=== PATIENT | male | born 1970 | race Caucasian/White ===

== ENCOUNTER 2016-12-01 08:17 | Day surgery (SDC) | payer OTHER ==
[2016-11-27 09:49] LABS: HEMATOCRIT 45.3 % (40.0-51.0); HEMOGLOBIN 15.4 g/dL (13.6-17.8)
[2016-11-27 11:06] LABS: ASCORBIC ACID (UR NOT ORDER) NEG (NEG); BILIRUBIN, URINE NEGATIVE (NEG); KETONE, URINE NEGATIVE (NEG); LEUKOCYTE ESTERASE(NOT OR NEG (NEG); WBC (NOT ORDERED) (RFLEX) 5 (0-5)
--- NOTE | ~2016-12-01 | OP ---
[facility] [address] [place]. [address] NAME: CLEMENTE NEVES : 70 STATUS : [facility]#: [id number] AGE: 45 ADM/REG DATE : 12/01/16 MR#: [id number] REPORT SERV DATE: 12/01/16 DICTATED BY: ANDREY NIX DATE: 12/01/16 REPORT STATUS : Draft TRANSCRIBED BY: SHELLEYL DATE: 12/01/16 DATE OF PROCEDURE: 12/01/2016 SURGEON: Andrey Nix MD TITLE OF OPERATION: Cystourethroscopy, right ureteral extracorporeal shockwave lithotripsy. PREOPERATIVE DIAGNOSES: 1. Microscopic hematuria. 2. Right ureteral stone. POSTOPERATIVE DIAGNOSIS: 1. Microscopic hematuria. 2. Right ureteral stone. INDICATIONS: Mr. Neves is a 45-year-old male, with an obstructing asymptomatic 6 mm right ureteral stone. He also has microscopic hematuria. He is here for cystoscopy and right ureteral ESWL. ANESTHESIA: General. COMPLICATIONS: None. IMPLANTS: None. SPECIMENS: None. NARRATIVE: The patient was brought to the litho suite. General anesthesia was induced. Levaquin was given for preoperative antibiotics. A flexible cystoscopy was performed. The prostatic urethra was normal in caliber. There was no obstruction. The bladder was inspected. There were no tumors, lesions, or trabeculations. He had a negative cystoscopy. Using the C-arm to the stone was localized in the AP and lateral planes. Once the stone was in appropriate position. The lithotripter was coupled to the patient. The shocks were initiated. The shocks were initially started at low grade and ramped up gradually to 120 shocks per minute. The power was started at level of 3 and increased to total level of 5. A total shock number was 3000. There was good radiographic response to the therapy. There were no complications. Fluoro time was acceptable. The patient was awoken from anesthesia and transferred to recovery room in stable condition. I will see him back in two weeks with a KUB. JOSIAS/MIRYAM Andrey Nix MD [facility] [place] [id number] [place]. [place]. [address] NAME: CLEMENTE NEVES : 70 STATUS : [facility] PAT#: [id number] AGE: 45 ADM/REG DATE : 12/01/16 MR#: [id number] REPORT SERV DATE: 12/01/16 DICTATED BY: ANDREY NIX DATE: 12/01/16 REPORT STATUS : Draft TRANSCRIBED BY: MODL DATE: 12/01/16 / [id number] CC: MD NARCISO Iyer VICKY L *
[~2016-12-01 08:17] MED LIST: MULTIVIT/MIN PO; WELLXL150 PO
== END 2016-12-01 16:56 | disposition home or self-care (01) ==
LOC: SDC 08:17
PROVIDERS: Urology
PROC: 0TF6XZZ Fragmentation in Right Ureter, External Approach (ICD-10-PCS; principal; 2016-12-01 10:30)
DX: N20.1 Calculus of ureter (principal); R31.29 Other microscopic hematuria; G47.33 Obstructive sleep apnea (adult) (pediatric); F32.9 Major depressive disorder, single episode, unspecified; Z91.018 Allergy to other foods; Z87.442 Personal history of urinary calculi; Z87.891 Personal history of nicotine dependence; Z79.899 Other long term (current) drug therapy
CPT/HCPCS: 50590; 74000; 81001; 85014; 85018; 85576; J2250; J2370; J2405; J3010